=== PATIENT | female | born 1955 | race Caucasian/White ===

== ENCOUNTER 2022-03-20 12:26 | Emergency (ER) | payer MEDICARE | END 2022-03-20 14:57 | disposition home or self-care (01) | LOC: JP.ED 12:26 | DX: S61.012A Laceration without foreign body of left thumb without damage to nail, initial encounter (principal); E03.9 Hypothyroidism, unspecified; Z23 Encounter for immunization; Z88.8 Allergy status to other drugs, medicaments and biological substances; Z88.5 Allergy status to narcotic agent; Z79.899 Other long term (current) drug therapy; W26.8XXA Contact with other sharp object(s), not elsewhere classified, initial encounter | CPT/HCPCS: 12001; 99281; 99283 ==